=== PATIENT | male | born 1955 | race Caucasian/White ===

== ENCOUNTER 2023-04-05 21:03 | Emergency (ER) | payer MEDICARE, BC ==
[2023-04-05] MEDS ORDERED: cephALEXin 250 MG CAPSULE PO STA (21:42)
[2023-04-05] MEDS ORDERED: SULFAMETH/TRIMETH DS 800/160 MG TABLET PO STA (21:42)
--- NOTE | 2023-04-05 21:45 | ED Physician Documentation ---
History of Present Illness - Stated complaint Stated Complaint: SPIDER BITE - Chief complaint Chief Complaint: Ext Problem - Additonal information Additional information: 67-year-old male who reports himself is ambidextrous presents to the emergency department for evaluation of acute right small finger swelling and erythema. Symptoms began yesterday. He thinks he may have been bitten by a spider. No history of similar. No history of MRSA. The finger itself is grossly swollen and held in flexed position. No fevers. Review of Systems Musculoskeletal: reports: Extremity pain PD PAST MEDICAL HISTORY - Past Medical History Past Medical History: Yes Cardiovascular: Hypertension Respiratory: None Neuro: None Endocrine/Autoimmune: None GI: None : Benign prostate hypertrophy HEENT: None Psych: None Musculoskeletal: None Derm: None - Past Surgical History Past Surgical History: Yes Ortho: Hip replacement - Present Medications Home Medications: Ambulatory Orders Medication Instructions Recorded Confirmed Sulfamethox/Trimeth 800/160 1 each PO BID #14 tablet 04/05/23 [Bactrim Ds 800/160] cephALEXin [Keflex] 500 mg PO Q6H #28 cap 04/05/23 - Allergies Allergies/Adverse Reactions: Allergies Allergy/AdvReac Type Severity Reaction Status Date / Time No Known Drug Allergies Allergy Verified 04/05/23 21:18 - Social History Does the pt smoke?: No Smoking Status: Never smoker Does the pt drink ETOH?: Yes Does the pt have substance abuse?: No - Immunizations Immunizations are current?: Yes - POLST Patient has POLST: No PD ED PE EXPANDED - General General: Alert, No acute distress - Extremities Extremities: Right finger(s) (Right small finger is grossly swollen and erythematous. Tender to touch especially over the PIP joint. No obvious fluctuance is noted. No extension of pain with passive flexion.) Results - Vitals Vitals: Vital Signs - 24 hr 04/05/23 04/05/23 21:12 21:20 Temperature 36.5 C Heart Rate 69 Respiratory 16 17 Rate Blood Pressure 150/87 H O2 Saturation 96 Oxygen O2 Source Room air PD Medical Decision Making - ED course Complexity details: d/w patient ED course: 67-year-old male presents to the emergency department for evaluation of acute right small finger swelling and erythema that began yesterday. Clinically the exam is consistent with cellulitis. He did not have an extension of pain with passive extension of the finger therefore I have lower suspicion for tenosynovitis. No lymphangitis on exam. Patient will be started on Bactrim and Keflex. Advised warm compress to the finger. Discussed that if not markedly better after the first few doses of antibiotics he should return to the ER for repeat evaluation though and exam today I do not see an obvious fluctuance or area for drainage Departure - Departure Disposition: Home, Self Care Clinical Impression: Cellulitis of finger of right hand Condition: Stable Record reviewed to determine appropriate education?: Yes Prescriptions: Sulfamethox/Trimeth 800/160 [Bactrim Ds 800/160] 1 each PO BID #14 tablet cephALEXin [Keflex] 500 mg PO Q6H #28 cap Comments: Sergio you do have a bacterial skin infection of your right small finger. I have sent a prescription for 2 antibiotics to the [facility] in [place]. Your first doses were given this evening in the ER. Place a warm compress over this finge r for 10 minutes 3 times a day. If you find that you are having worsening pain or swelling despite starting the antibiotics you do need to return immediately to the ER for repeat evaluation
[2023-04-05 21:54] VITALS: BP 140/68
== END 2023-04-05 21:54 | disposition home or self-care (01) ==
LOC: ED 21:03
DX: L03.011 Cellulitis of right finger (principal); I10 Essential (primary) hypertension
CPT/HCPCS: 99282; 99283; A9270

== ENCOUNTER 2023-12-20 23:08 | Emergency (ER) | payer MEDICARE, BC ==
[2023-12-20 23:37] LABS: BASOPHILS # (AUTO) 0.1 10^3/uL (0.0-0.1); EOSINOPHILS # (AUTO) 0.2 10^3/uL (0.0-0.7); EOSINOPHILS % (AUTO) 2.2 %; HCT - HEMATOCRIT 39.4 % (42.0-52.0); LYMPHOCYTES # (AUTO) 1.5 10^3/uL (1.5-3.5); LYMPHOCYTES % (AUTO) 21.4 %; MEAN CORPUSCULAR HEMOGLOBIN 29.3 pg (27.0-31.0); MEAN CORPUSCULAR VOLUME 88.9 fL (80.0-94.0); MEAN PLATELET VOLUME 9.1 fL (7.4-11.4); MONOCYTES # (AUTO) 0.8 10^3/uL (0.0-1.0); MONOCYTES % (AUTO) 11.4 %; NEUTROPHILS # (AUTO) 4.4 10^3/uL (1.5-6.6); NEUTROPHILS % (AUTO) 63.9 %; PLT - PLATELET COUNT 269 10^3/uL (130-450); RED BLOOD COUNT 4.43 10^6/uL (4.70-6.10); RED CELL DISTRIBUTION WIDTH 13.1 % (12.0-15.0); WHITE BLOOD COUNT 6.9 x10^3/uL (4.8-10.8)
[2023-12-20 23:49] LABS: ALBUMIN/GLOBULIN RATIO 1.3 (1.0-2.2); BILIRUBIN,TOTAL 0.8 mg/dL (0.2-1.0); CALCIUM 9.4 mg/dL (8.5-10.3); CREATININE 1.3 mg/dL (0.6-1.3); POTASSIUM 3.9 mmol/L (3.5-4.5); TOTAL PROTEIN 7.1 g/dL (6.4-8.9)
[2023-12-20] MEDS ORDERED: SODIUM CHLORIDE 0.9% 1,000 ML IV STA (23:49)
--- NOTE | 2023-12-21 00:09 | ED Physician Documentation ---
PD HPI ABD PAIN - Stated complaint Stated Complaint: - Chief complaint Chief Complaint: Abd Pain - History obtained from History obtained from: Patient - Additional information Additional information: Patient is a 68-year-old male with a history of enlarged prostate presenting for evaluation of lower abdominal pain starting this evening. Patient states that he is been ongoing having difficulty with voiding for the last 2 months since he stopped taking Flomax. He did resume it this past Sunday after getting another prescription filled. Today he has been straining to urinate and reports this evening developed some pain in the left lower quadrant. Nothing makes it better or worse. No nausea, vomiting or diarrhea. Last bowel movement was tonight. No fever, dysuria or hematuria. Review of Systems Constitutional: denies: Fever Cardiac: denies: Chest pain / pressure Respiratory: denies: Dyspnea GI: reports: Abdominal Pain. denies: Vomiting, Diarrhea : denies: Dysuria PD PAST MEDICAL HISTORY - Past Medical History Past Medical History: Yes Cardiovascular: Hypertension Respiratory: None Neuro: None Endocrine/Autoimmune: None GI: None : Benign prostate hypertrophy HEENT: None Psych: None Musculoskeletal: None Derm: None - Past Surgical History Past Surgical History: Yes Ortho: Hip replacement - Present Medications Home Medications: Ambulatory Orders Medication Instructions Recorded Confirmed Lisinopril/Hydrochlorothiazide 1 tab PO DAILY 12/20/23 12/20/23 [Zestoretic 20-12.5 mg Tablet] Tamsulosin HCl [Flomax] 2 cap PO DAILY 12/20/23 12/20/23 - Allergies Allergies/Adverse Reactions: Allergies Allergy/AdvReac Type Severity Reaction Status Date / Time No Known Drug Allergies Allergy Verified 12/20/23 23:20 - Social History Does the pt smoke?: No Smoking Status: Never smoker Does the pt drink ETOH?: No Does the pt have substance abuse?: No - Immunizations Immunizations are current?: Yes - POLST Patient has POLST: No PD ED PE NORMAL - General General: Alert and oriented X 3, No acute distress, Well developed/nourished - HEENT HEENT: Atraumatic, Moist mucous membranes, Pharynx benign - Neck Neck: Supple, no meningeal sign - Cardiac Cardiac: RRR, Strong equal pulses - Respiratory Respiratory: No respiratory distress, Clear bilaterally - Abdomen Abdomen: Normal bowel sounds, Soft, Non distended, Other (Left lower quadrant tenderness, no Palpable mass, no hernia) - Derm Derm: Warm and dry - Neuro Neuro: Normal speech Results - Vitals Vitals: Vital Signs - 24 hr 12/20/23 12/21/23 12/21/23 23:10 00:23 00:50 Temperature 36.4 C L Heart Rate 84 73 77 Respiratory 18 16 16 Rate Blood Pressure 135/84 H 129/82 H 127/80 O2 Saturation 96 99 97 12/21/23 01:25 Temperature 36.9 C Heart Rate 75 Respiratory 14 Rate Blood Pressure 130/65 O2 Saturation 97 Oxygen O2 Source Room air - Labs Labs: Laboratory Tests 12/20/23 12/20/23 23:32 23:32 WBC 6.9 RBC 4.43 L Hgb 13.0 L Hct 39.4 L MCV 88.9 MCH 29.3 MCHC 33.0 RDW 13.1 Plt Count 269 MPV 9.1 Neut # (Auto) 4.4 Lymph # (Auto) 1.5 Lynn # (Auto) 0.8 Eos # (Auto) 0.2 Baso # (Auto) 0.1 Absolute Nucleated RBC 0.00 Nucleated RBC % 0.0 Sodium 137 Potassium 3.9 Chloride 106 Carbon Dioxide 24 Anion Gap 7.0 BUN 23 H Creatinine 1.3 Estimated GFR (MDRD) 55 L Glucose 110 H Calcium 9.4 Total Bilirubin 0.8 AST 18 ALT 18 Alkaline Phosphatase 82 Total Protein 7.1 Albumin 4.0 Globulin 3.1 Albumin/Globulin Ratio 1.3 Lipase 29 PD Medical Decision Making - ED course Complexity details: reviewed results, re-evaluated patient, d/w patient ED course: Patient is a 68-year-old male with a history of enlarged prostate presenting for evaluation of left lower quadrant abdominal pain starting today. Vital signs are stable. No vomiting or diarrhea or constipation. Labs including CBC and chemistries were obtained and reviewed without significant findings. CT scan of the abdomen pelvis was obtained and without signs of Infection or surgical condition. Bladder scan demonstrated 300 mL of urine. Patient has reported ongoing issues with voiding but does not want a catheter tonight. He understands strict return precautions for any new or worsening symptoms. Departure - Departure Disposition: 01 Home, Self Care Clinical Impression: Left lower quadrant abdominal pain Condition: Stable Instructions: ED Abdominal Pain Unkn Cause Male Comments: Your lab testing tonight and CAT scan are reassuring without any significant findings. Your bladder scan shows about 300 ml in your bladder. This is more urine than ideal but not so significant where we absolutely have to place a catheter. I understand not wanting a catheter placed tonight. If you continue to have difficulties with urinating and have any more discomfort then please return to the emergency department so we can reassess. Return to the emergency department with any new or worsening complaints. Please continue to take your Flomax as directed. Forms: PCP List Discharge Date/Time: 12/21/23 01:31
[2023-12-21] MEDS ORDERED: iohexoL-300 100 ML VIAL ONE (00:16)
[2023-12-21] MEDS ORDERED: iohexoL-300 100 ML VIAL IVP ONE (00:39)
--- NOTE | 2023-12-21 00:54 | CT Report ---
PROCEDURE: Abdomen/Pelvis W INDICATIONS: LLQ pain CONTRAST: Omni 300, 100mls TECHNIQUE: After the administration of intravenous contrast, a CT scan of the abdomen and pelvis was performed. Images were recorded and evaluated at appropriate window settings. Reformats: coronal and sagittal. F or radiation dose reduction, the following was used: automated exposure control, adjustment of mA and /or kV according to patient size. COMPARISON: None. FINDINGS: Image quality: Diagnostic. Lower chest: Unremarkable. Liver: Hepatic steatosis. Gallbladder and biliary tree: Surgically absent. No biliary dilation, accounting for post-cholecystec maria alejandra state. Spleen: No splenomegaly. Pancreas: No pancreatic ductal dilation. Adrenals: Benign right adrenal adenoma based on Hounsfield units criteria, measuring 3.3 cm (7 Hounsf ield unit). Kidneys and ureters: No hydronephrosis. No renal cystic lesion which requires follow up. No solid mas s. Stomach, bowel and peritoneum: No bowel distension. No pathologic free fluid. Diverticulosis without evidence of diverticulitis. Appendectomy. Lymph nodes: No central or retroperitoneal adenopathy. Vessels: No infrarenal aortic aneurysm. PELVIS Reproductive organs: Unremarkable. Bladder: No abnormal wall thickening, accounting for underdistention. Pelvic lymph nodes: No pelvic adenopathy by size criteria. Bones: No aggressive osseous abnormality. Bilateral total hip arthroplasties. Other: No significant ventral or inguinal hernia. IMPRESSION: Colonic diverticulosis without evidence of diverticulitis. Cholelithiasis without evidence of acute cholecystitis. No nephrolithiasis. Reviewed by: Kamar Hopkins MD on 12/21/2023 12:52 AM [facility] Approved by: Kamar Hopkins MD on 12/21/2023 12:52 AM PST Station ID: [id number]
[2023-12-21 00:57] VITALS: O2SAT 97
[2023-12-21 01:36] VITALS: BP 130/65
== END 2023-12-21 01:31 | disposition home or self-care (01) ==
LOC: ED 23:08
DX: R10.32 Left lower quadrant pain (principal); I10 Essential (primary) hypertension; Z79.899 Other long term (current) drug therapy
CPT/HCPCS: 36415; 74177; 80053; 83690; 85025; 99283; 99284; Q9967

== ENCOUNTER 2023-12-27 02:35 | Outpatient (CLI) | payer MEDICARE, BC | END 2023-12-27 02:36 | disposition critical access hospital (66) | LOC: EMS 02:35 | DX: R55 Syncope and collapse (principal); R51.9 Headache, unspecified | CPT/HCPCS: A0425; A0429 ==

== ENCOUNTER 2023-12-27 02:52 | Emergency (ER) | payer MEDICARE, BC ==
--- NOTE | 2023-12-27 03:06 | ED Physician Documentation ---
History of Present Illness - Stated complaint Stated Complaint: SYNCOPE - History obtained from History obtained from: Patient, Family () - Additonal information Additional information: 68yM with pmh htn, bph p/w syncope and collapse around 2:30am tonight. Patient remembers going to the bathroom and then became lightheaded and does not remember anything until restrooms or lounges maid gave him sternal rub on arrival. states she saw him go to the bathroom then heard a thud and found him supine. she called ems and he awakened on their arrival. patient denies fever, cough, uri symptoms, cp, soa, n/v/d abdominal pain. he does have a 6/10 frontal LESLIE but does not believe he hit his head. no blood thinners. of note, patient went over 36 hours without sleeping before finally falling asleep at 9pm last night. he states this is unusual for him and he was preparing for a big work event. he is insistent he has to leave for the event in [place] at 6:15am. PD PAST MEDICAL HISTORY - Past Medical History Cardiovascular: Hypertension Respiratory: None Neuro: None Endocrine/Autoimmune: None GI: None : Benign prostate hypertrophy HEENT: None Psych: None Musculoskeletal: None Derm: None - Past Surgical History Past Surgical History: Yes Ortho: Hip replacement - Present Medications Home Medications: Ambulatory Orders Medication Instructions Recorded Confirmed Lisinopril/Hydrochlorothiazide 1 tab PO DAILY 12/20/23 12/20/23 [Zestoretic 20-12.5 mg Tablet] Tamsulosin HCl [Flomax] 2 cap PO DAILY 12/20/23 12/20/23 - Allergies Allergies/Adverse Reactions: Allergies Allergy/AdvReac Type Severity Reaction Status Date / Time No Known Drug Allergies Allergy Verified 12/20/23 23:20 - Social History Does the pt smoke?: No Smoking Status: Never smoker Does the pt drink ETOH?: No Does the pt have substance abuse?: No - Immunizations Immunizations are current?: Yes - POLST Patient has POLST: No PD ED PE NORMAL - Vitals Vital signs reviewed: Yes - General General: Alert and oriented X 3, No acute distress, Well developed/nourished, Other (tearful) - HEENT HEENT: Atraumatic, PERRL, EOMI, Moist mucous membranes, Pharynx benign - Neck Neck: Supple, no meningeal sign - Cardiac Cardiac: RRR - Respiratory Respiratory: No respiratory distress, Clear bilaterally - Abdomen Abdomen: Non tender, Non distended - Derm Derm: Normal color, Warm and dry - Extremities Extremities: No deformity - Neuro Neuro: Alert and oriented X 3, master electrician 2-12 intact, No motor deficit, No sensory deficit, Normal speech Eye Opening: To Voice Motor: Obeys Commands Verbal: Oriented GCS Score: 14 Results - Vitals Vitals: Vital Signs - 24 hr 12/27/23 12/27/23 03:00 03:39 Temperature 36.4 C L 36.4 C L Heart Rate 58 L 58 L Respiratory 19 19 Rate Blood Pressure 121/67 121/67 O2 Saturation 100 100 Oxygen O2 Source Room air - EKG (time done) 0317 EKG releavant findings:: EKG personally interpreted by author of this note. Relevant findings are: Rate: Rate (enter#) (57) Rhythm: NSR [place]: Normal Intervals: Normal [place] QRS: Normal Ischemia: Normal ST segments - Labs Labs: Laboratory Tests 12/27/23 12/27/23 03:11 03:11 WBC 9.0 RBC 3.92 L Hgb 11.9 L Hct 35.1 L MCV 89.5 MCH 30.4 MCHC 33.9 RDW 13.3 Plt Count 220 MPV 9.4 Neut # (Auto) 6.1 Lymph # (Auto) 1.5 Saline # (Auto) 1.1 H Eos # (Auto) 0.2 Baso # (Auto) 0.1 Absolute Nucleated RBC 0.00 Nucleated RBC % 0.0 Sodium 134 L Potassium 3.6 Chloride 104 Carbon Dioxide 23 Anion Gap 7.0 BUN 16 Creatinine 1.1 Estimated GFR (MDRD) 67 L Glucose 122 H Calcium 9.1 Total Bilirubin 2.1 H AST 18 ALT 18 Alkaline Phosphatase 54 Troponin I High Sens 3.9 Total Protein 6.6 Albumin 3.7 Globulin 2.9 Albumin/Globulin Ratio 1.3 Lipase < 10 L Ethyl Alcohol < 10.0 PD Medical Decision Making - ED course ED course: 68yM presents to the ED s/p syncope and collapse while going to the bathroom around 2:30am in setting of sleep deprivation. Patient is tearful and insistent he has to leave soon for his work event this morning. Neuro exam benign. Plan to obtain cbc, abdominal panel, troponin, and provide medications for headache and reevaluate. Headache resolved s/p meds. Labwork was benign with exception of mild anemia with hb 11.9 and elevated tbili 2.1. states he keeps having recurrent anemia and it's been worked up before and they still don't know the cause. patient refuses rectal exam at this time and requests to f/u with his pcp about this. As for tbili elevation he is not having any abdominal pain, n/v/d and has benign abdominal exam. etoh level is <10. plan to f/u with pcp to repeat. Also discussed need for outpatient echocardiogram. return precautions given. Departure - Departure Disposition: 01 Home, Self Care Clinical Impression: Syncope and collapse, Sleep deprivation Condition: Stable Instructions: ED Fainting Unkn Cause Comments: You were seen in the emergency department for fainting episode. Your workup in the ED uncovered some anemia with hemoglobin of 11.9. You also had increased total bilirubin of 2.1. You should see your primary care provider for follow up of this. You may also benefit from outpatient echocardiogram to make sure your heart is healthy. Please follow-up with your primary care provider and return to the emergency department if you have any new or worsening symptoms or other concerns.
[2023-12-27 03:19] LABS: BASOPHILS # (AUTO) 0.1 10^3/uL (0.0-0.1); BASOPHILS % (AUTO) 0.7 %; EOSINOPHILS # (AUTO) 0.2 10^3/uL (0.0-0.7); EOSINOPHILS % (AUTO) 1.8 %; HCT - HEMATOCRIT 35.1 % (42.0-52.0); HGB - HEMOGLOBIN 11.9 g/dL (14.0-18.0); LYMPHOCYTES # (AUTO) 1.5 10^3/uL (1.5-3.5); MEAN CORPUSCULAR HEMOGLOBIN 30.4 pg (27.0-31.0); MEAN CORPUSCULAR HGB CONC 33.9 g/dL (32.0-36.0); MEAN CORPUSCULAR VOLUME 89.5 fL (80.0-94.0); MEAN PLATELET VOLUME 9.4 fL (7.4-11.4); MONOCYTES # (AUTO) 1.1 10^3/uL (0.0-1.0); MONOCYTES % (AUTO) 11.7 %; NEUTROPHILS # (AUTO) 6.1 10^3/uL (1.5-6.6); NEUTROPHILS % (AUTO) 68.5 %; PLT - PLATELET COUNT 220 10^3/uL (130-450); RED BLOOD COUNT 3.92 10^6/uL (4.70-6.10); RED CELL DISTRIBUTION WIDTH 13.3 % (12.0-15.0)
[2023-12-27] MEDS: METOCLOPRAMIDE 10 MG/2 ML VIAL IVP STA (03:22)
[2023-12-27] MEDS: ACETAMINOPHEN 325 MG TABLET PO STA (03:22)
[2023-12-27] MEDS: diphenhydrAMINE INJ 50 MG/ML VIAL IVP STA (03:22)
[2023-12-27 03:32] LABS: ALBUMIN 3.7 g/dL (3.2-5.5); ALBUMIN/GLOBULIN RATIO 1.3 (1.0-2.2); ALKALINE PHOSPHATASE 54 IU/L (42-121); ALT ALANINE AMINOTRANSFERASE 18 IU/L (10-60); AST ASPARTATE AMINOTRANSFERASE 18 IU/L (10-42); BILIRUBIN,TOTAL 2.1 mg/dL (0.2-1.0); BUN - BLOOD UREA NITROGEN 16 mg/dL (6-20); CALCIUM 9.1 mg/dL (8.5-10.3); CARBON DIOXIDE - CO2 23 mmol/L (21-32); CHLORIDE 104 mmol/L (101-111); CREATININE 1.1 mg/dL (0.6-1.3); ETOH - ETHANOL < 10.0 mg/dL; GFR - MDRD 67 (>89); GLUCOSE 122 mg/dL (74-104); POTASSIUM 3.6 mmol/L (3.5-4.5); SODIUM 134 mmol/L (135-145); TOTAL PROTEIN 6.6 g/dL (6.4-8.9)
[2023-12-27 03:33] LABS: LIPASE < 10 U/L (11-82)
[2023-12-27 03:36] LABS: TROPONIN I HIGH SENSITIVITY 3.9 ng/L (2.3-19.7)
[2023-12-27 04:55] VITALS: BP 131/89; O2SAT 91
--- NOTE | 2023-12-27 08:07 | XRAY Report ---
PROCEDURE: Chest 1V INDICATIONS: Chest Pain TECHNIQUE: One view of the chest was acquired. COMPARISON: None. FINDINGS: Surgical changes and devices: None. Lungs and pleura: No pleural effusions or pneumothorax. Lungs are clear. Mediastinum: Mediastinal contours appear normal. Heart size is normal. Bones and chest wall: No suspicious bony lesions. Overlying soft tissues appear unremarkable. IMPRESSION: No acute cardiopulmonary process. Findings are concordant with preliminary interpretation provided by [facility]. Reviewed by: Raphael Orellana MD on 12/27/2023 8:06 AM PST Approved by: Raphael Orellana MD on 12/27/2023 8:06 AM PST Station ID: [id number]
== END 2023-12-27 04:47 | disposition home or self-care (01) ==
LOC: EDUNIT# → ED 02:52
DX: R55 Syncope and collapse (principal); Z72.820 Sleep deprivation; D64.9 Anemia, unspecified; I10 Essential (primary) hypertension; Z79.899 Other long term (current) drug therapy
CPT/HCPCS: 36415; 71045; 80053; 83690; 84484; 85025; 93005; 96374; 99283; 99284; A9270; G0480; J1200; J2765; 80320